=== PATIENT | male | born 1995 | race Caucasian/White ===

== ENCOUNTER 2017-08-25 14:55 | Emergency (ER) | payer MEDICAID ==
[~2017-08-25] VITALS: Ht 180.3 cm; Wt 87.5 kg
[2017-08-25 15:08] VITALS: Ht 180.3 cm; Wt 87.5 kg
[2017-08-25 17:16] VITALS: BP 128/64
== END 2017-08-25 17:16 | disposition home or self-care (01) ==
LOC: ED 14:55
DX: S29.012A Strain of muscle and tendon of back wall of thorax, initial encounter (principal); S40.211A Abrasion of right shoulder, initial encounter; M41.9 Scoliosis, unspecified; V43.62XA Car passenger injured in collision with other type car in traffic accident, initial encounter; W22.10XA Striking against or struck by unspecified automobile airbag, initial encounter; Y93.89 Activity, other specified; Y99.8 Other external cause status; Y92.89 Other specified places as the place of occurrence of the external cause